=== PATIENT | male | born 1995 | race Caucasian/White ===

== ENCOUNTER 2018-05-31 09:54 | Emergency (ER) | payer MEDICAID ==
[~2018-05-31] VITALS: Ht 170.2 cm; Wt 70.0 kg
[2018-05-31] MEDS ORDERED: BACITRACIN ZINC OINT UDPKT TOP ONE (11:30)
[2018-05-31] MEDS ORDERED: TETANUS, DIPHTHERIA, PERTUSSIS VAC/PF 0.5ML (>7YR OLD) IM ONE (11:30)
[2018-05-31 12:39] VITALS: BP 135/80
== END 2018-05-31 12:50 | disposition home or self-care (01) ==
LOC: ER 09:54
DX: S40.012A Contusion of left shoulder, initial encounter (principal); S70.02XA Contusion of left hip, initial encounter; S90.02XA Contusion of left ankle, initial encounter; V89.0XXA Person injured in unspecified motor-vehicle accident, nontraffic, initial encounter; Y93.89 Activity, other specified; Y92.89 Other specified places as the place of occurrence of the external cause; Y99.8 Other external cause status
CPT/HCPCS: 73610; 73630; 90471; 90715; 99283